=== PATIENT | female | born 1995 | race Caucasian/White ===

== ENCOUNTER 2016-12-21 18:28 | Emergency (ER) | payer BC ==
[2016-12-21 18:37] VITALS: BP 138/75; PULSE 96; RESP 21; TEMP 97.8
--- NOTE | 2016-12-21 18:52 | ED ---
General Adult HPI - General Chief complaint: Anxiety Stated complaint: anxiety Time Seen by Provider: 12/21/16 18:30 Source: patient, EMS, RN notes reviewed Mode of arrival: EMS - History of Present Illness Initial comments: 21-year-old female presents to the emergency department with a chief complaint of anxiety. Patient has a history of anxiety and she was reading a book at work todaywhen she started to feel chest pain and shortness of breath and feeling very jittery which is typical of her anxiety attacks. 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 Patient states felt much like her typical anxiety attack. Patient states this time she is feeling much better. Patient denies any chest pain at this time. Patient states she is not currently having any other symptoms.Patient denies any recent fever, chills, shortness of breath, chest pain, back pain, abdominal pain, nausea vomiting, numbness or tingling, dysuria or hematuria, constipation or diarrhea, headaches or visual changes, or any other current symptoms. - Related Data Home Medications Medication Instructions Recorded Confirmed ALPRAZolam [Xanax] 0.25 mg PO BID PRN 10/09/14 10/23/15 Escitalopram [Lexapro] 20 mg PO HS 10/09/14 10/24/15 Levocetirizine Dihydrochloride 5 mg PO HS 10/09/14 10/24/15 [Xyzal] lamoTRIgine [LaMICtal] 100 mg PO HS 10/09/14 10/24/15 buPROPion [Wellbutrin] 100 mg PO QAM 08/27/15 10/23/15 Desmopressin [Ddavp] 0.2 mg PO HS 10/23/15 10/24/15 Previous Rx's Medication Instructions Recorded Acetaminophen-Codeine 300-30mg 2 tab PO Q6H PRN #20 tablet 09/02/15 [Tylenol #3] Hydrocodone/Acetaminophen [Lorcet 1 tab PO Q6HR #60 tab 10/24/15 5-325 mg Tablet] Allergies Allergy/AdvReac Type Severity Reaction Status Date / Time HAYFEVER Allergy Dyspnea Uncoded 09/24/15 14:47 Review of Systems ROS Statement: Those systems with pertinent positive or pertinent negative responses have been documented in the HPI. ROS Other: All systems not noted in ROS Statement are negative. Past Medical History Past Medical History: Asthma History of Any Multi-Drug Resistant Organisms: None Reported Past Surgical History: Appendectomy Additional Past Anesthesia/Blood Transfusion Reaction / Comment(s): NO HX OF BLOOD TRANSFUSION Past Psychological History: Anxiety, Depression Smoking Status: Never smoker Past Alcohol Use History: None Reported Past Drug Use History: Marijuana - Past Family History Father History Unknown: Yes Family Medical History: Hypertension General Exam General appearance: alert, anxious Head exam: Present: atraumatic, normocephalic, normal inspection ENT exam: Present: normal exam, mucous membranes moist Neck exam: Present: normal inspection. Absent: tenderness, meningismus, lymphadenopathy Respiratory exam: Present: normal lung sounds bilaterally. Absent: respiratory distress, wheezes, rales, rhonchi, stridor Cardiovascular Exam: Present: regular rate, normal rhythm, normal heart sounds. Absent: systolic murmur, diastolic murmur, rubs, gallop, clicks Neurological exam: Present: alert, oriented X3 Psychiatric exam: Present: normal affect, normal mood Skin exam: Present: warm, dry, intact, normal color. Absent: rash Course Vital Signs 12/21/16 18:29 Temperature 97.8 F Pulse Rate 96 Respiratory 21 Rate Blood Pressure 138/75 O2 Sat by Pulse 99 Oximetry EKG Findings - EKG Comments: EKG Findings:: normal sinus rhythm 95 bpm, normal axis, no atopy, no S-T depressions or elevations, Medical Decision Making - Medical Decision Making 21-year-old female presents emergency Department what appears to be an anxiety attack. Patient states this is much like her normal anxiety. EKG and chest. Bili negative. This time we discussed close follow up with her doctor. We discussed return parameters and all her questions. She stated that she understood and she is planned. - Radiology Data Radiology results: report reviewed, image reviewed Disposition Clinical Impression: Acute anxiety Disposition: HOME SELF-CARE Condition: Stable Instructions: Generalized Anxiety Disorder (ED) Additional Instructions: Please use medication as discussed. Please follow up with family doctor if symptoms have not improved over the next two days. Please return to the emergency room if your symptoms increase or worsen or for any other concerns. Referrals: Lan Chou MD [Primary Care Provider] - 1-2 days Time of Disposition: 18:59
--- NOTE | 2016-12-21 18:58 | XR ---
EXAMINATION TYPE: XR chest 2V DATE OF EXAM: 12/21/2016 COMPARISON: 08/29/2015 HISTORY: Cough TECHNIQUE: Frontal and lateral views of the chest are obtained. FINDINGS: Heart and mediastinum are normal. Lungs are clear. Diaphragm is normal. Bony thorax is int act. IMPRESSION: Normal chest. No change.
== END 2016-12-21 19:07 | disposition home or self-care (01) ==
LOC: SUPCPDRO 18:28 → EC 18:28
DX: F41.9 Anxiety disorder, unspecified (principal); F32.9 Major depressive disorder, single episode, unspecified; Z91.09 Other allergy status, other than to drugs and biological substances
CPT/HCPCS: 71020; 93005; 99284